=== PATIENT | male | born 1955 | race Asian ===

== ENCOUNTER 2017-09-02 07:36 | Day surgery (SDC) | payer OTHER ==
[2017-09-02] MEDS ORDERED: MIDAZOLAM 1 MG/ML 2 ML INJ ×2 (10:22)
[2017-09-02] MEDS ORDERED: FENTAnyl 50 MCG/ML VIAL (10:22)
== END 2017-09-02 14:29 | disposition home or self-care (01) ==
LOC: GIL 07:36
DX: Z12.11 Encounter for screening for malignant neoplasm of colon (principal); D12.6 Benign neoplasm of colon, unspecified; K57.90 Diverticulosis of intestine, part unspecified, without perforation or abscess without bleeding; E11.9 Type 2 diabetes mellitus without complications; I10 Essential (primary) hypertension
CPT/HCPCS: 45380; 82962; 88305